=== PATIENT | female | born 1950 | race American Indian/Alaskan Native ===

== ENCOUNTER 2018-10-13 23:00 | Emergency (ER) | payer MEDICARE, OTHER ==
[2018-10-14 03:58] VITALS: BP 117/71
== END 2018-10-13 23:53 | disposition left against medical advice (07) ==
LOC: ED 23:00
DX: H92.01 Otalgia, right ear (principal); Z53.21 Procedure and treatment not carried out due to patient leaving prior to being seen by health care provider
CPT/HCPCS: 93005; 93010